=== PATIENT | female | born 1965 | race Caucasian/White ===

== ENCOUNTER 2019-11-13 10:34 | Emergency (ER) | payer BC ==
[~2019-11-13] VITALS: Ht 170.2 cm; Wt 77.3 kg
[~2019-11-13 10:34] MED LIST: BUSP10TA10 PO; CYCL-394 PO; PROM25TA14 PO; ZOLP5TAB8 PO
[2019-11-13 10:59] VITALS: BP 134/87
--- NOTE | 2019-11-13 11:17 | NUR ---
PT FELL OFF A LADDER THIS MORNING AROUND 10 AM HITTING HER RIGHT KNEE. WAS UNABLE TO BEAR WEIGHT. SHE WAS UNPLUGGING ONE OF HER GUTTERS. SHE HAD HER PHONE WITH HER AND CALLED HER DAD TO COME AND GET HER.
[2019-11-13] MEDS ORDERED: HYDROcodone/acetaminophen 10/325mg tab PO ONE (11:50)
[2019-11-13] MEDS ORDERED: IBUP-1984 PO (12:10)
== END 2019-11-13 12:45 | disposition home or self-care (01) ==
LOC: ER 10:35
DX: M25.461 Effusion, right knee (principal); Z88.5 Allergy status to narcotic agent; Z79.899 Other long term (current) drug therapy; W01.0XXA Fall on same level from slipping, tripping and stumbling without subsequent striking against object, initial encounter; Y93.89 Activity, other specified; Y92.89 Other specified places as the place of occurrence of the external cause; Y99.8 Other external cause status
CPT/HCPCS: 29505; 73564; 99283